=== PATIENT | female | born 1940 | race Caucasian/White ===

== ENCOUNTER 2021-09-20 19:47 | Inpatient (IN) ==
[2021-09-20] MEDS ORDERED: Melatonin 3 MG TABLET PO PRN (22:53)
[2021-09-20] MEDS ORDERED: Naloxone 0.4 MG/ML INJ IVP PRN (22:53)
[2021-09-20] MEDS ORDERED: *HR* HYDROcodone/Acet 5/325 mg TABLET PO PRN (22:53)
[2021-09-20] MEDS ORDERED: *HR* OxyCODONE Immed Rel 5 MG TABLET PO PRN (22:53)
[2021-09-20] MEDS ORDERED: Ondansetron ODT 4 MG TAB.RAPDIS SL PRN (22:53)
[2021-09-21 00:52] LABS: Basophils % 0.2 %; Eosinophils # 0.4 K/mcL (0.0-0.6); Eosinophils % 2.1 %; Hematocrit 46.2 % (35.3-44.9); Hemoglobin 14.9 g/dL (11.5-15.4); Immature Granulocytes % 0.6 % (0-4); Lymphocytes # 1.5 K/mcL (0.6-4.6); Lymphocytes % 7.8 %; Mean Corpuscular HGB Conc 32.3 g/dL (31.6-35.5); Mean Corpuscular Hemoglobin 32.5 pg (28.0-33.3); Mean Corpuscular Volume 100.9 fL (83.0-100.0); Neutrophils # 16.1 K/mcL (1.6-8.9); Platelet Count 223 K/mcL (140-400); Red Blood Count 4.58 M/mcL (3.82-4.97); Red Cell Distribution Width 12.9 % (11.5-14.5); Segmented Neutrophils % 84.3 %; White Blood Count 19.1 K/mcL (4.3-11.1)
[2021-09-21 00:59] LABS: INR 1.1; Prothrombin Time 12.4 Seconds (9.4-12.1)
[2021-09-21 01:02] LABS: Activated Partial Thrombo Time 25.7 Seconds (26.0-36.0)
[2021-09-21 01:04] LABS: Albumin 3.8 g/dL (3.5-5.7); Albumin/Globulin Ratio 1.3 (1.1-2.2); Bilirubin,Total 1.2 mg/dL (0.3-1.0); Calcium 9.1 mg/dL (8.6-10.3); Globulin 2.9 g/dL (2.4-3.5); Magnesium 2.3 mg/dL (1.6-2.6); Potassium 3.9 mEq/L (3.5-5.1); Total Protein 6.7 g/dL (6.4-8.9)
[2021-09-21] MEDS ORDERED: Acetaminophen 325 MG TABLET PO PRN (12:17)
[2021-09-21] MEDS ORDERED: *HR* HYDROcodone/Acet 5/325 mg TABLET PO PRN (12:17)
[2021-09-21] MEDS ORDERED: *HR* FentaNYL (PF) 100 MCG/2 ML VIAL ONE (12:27)
[2021-09-21] MEDS ORDERED: *HR* Midazolam HCl 5 MG/5 ML VIAL IVP ONE ×2 (12:27→13:37)
[2021-09-21] MEDS ORDERED: Pantoprazole 40 MG VIAL IVP SCH (12:30)
[2021-09-21] MEDS ORDERED: *HR* FentaNYL (PF) 100 MCG/2 ML VIAL IVP ONE (13:23)
[2021-09-21] MEDS ORDERED: Dextrose Gel 15 GM/37.5 ML TUBE PO PRN ×2 (17:37)
[2021-09-21] MEDS ORDERED: *HR* Dextrose 50 % in Water (Syg) 50 ML SYRINGE IVP PRN (17:37)
[2021-09-21] MEDS ORDERED: D5% in Water 1,000 ML IVC PRN (17:37)
[2021-09-21] MEDS ORDERED: 0.9 % Sodium Chloride 1,000 ML IVC SCH (18:00)
[2021-09-21 18:57] LABS: Bilirubin,Urine Negative (Negative); Blood,Urine Negative (Negative); Clarity,Urine Clear (Clear); Color,Urine Light-Yellow (Yellow); Glucose,Urine (UA) Normal (Normal); Ketones,Urine 20 mg/dL (Negative); Leukocyte Esterase,Urine Negative (Negative); Nitrite,Urine Negative (Negative); Protein,Urine Trace mg/dL (Neg-Trace); Specific Gravity,Urine 1.026 (1.010-1.025); Urobilinogen,Urine Normal (Normal)
[2021-09-21] MEDS: Piperacillin/Tazobactam 3.375 GM in 0.9 % Sodium Chloride Mini Bag 100 ML IVPB SCH (18:59)
[2021-09-22] MEDS ORDERED: 0.9 % Sodium Chloride Mini Bag 100 ML ONE (00:01)
[2021-09-22] MEDS: Piperacillin/Tazobactam 3.375 GM in 0.9 % Sodium Chloride Mini Bag 100 ML IVPB SCH ×4 (00:03→23:27)
[2021-09-22 03:00] LABS: Basophils % 0.2 %; Eosinophils # 0.1 K/mcL (0.0-0.6); Eosinophils % 0.7 %; Hemoglobin 13.7 g/dL (11.5-15.4); Immature Granulocytes % 0.3 % (0-4); Lymphocytes # 1.4 K/mcL (0.6-4.6); Lymphocytes % 10.6 %; Mean Corpuscular HGB Conc 31.1 g/dL (31.6-35.5); Mean Corpuscular Hemoglobin 31.8 pg (28.0-33.3); Mean Corpuscular Volume 102.1 fL (83.0-100.0); Mean Platelet Volume 10.2 fL (9.4-12.4); Monocytes # 0.8 K/mcL (0.0-1.3); Monocytes % 5.8 %; Neutrophils # 11.1 K/mcL (1.6-8.9); Platelet Count 165 K/mcL (140-400); Red Blood Count 4.31 M/mcL (3.82-4.97); Red Cell Distribution Width 12.6 % (11.5-14.5); Segmented Neutrophils % 82.4 %; White Blood Count 13.5 K/mcL (4.3-11.1)
[2021-09-22 03:06] LABS: INR 1.1; Prothrombin Time 12.1 Seconds (9.4-12.1)
[2021-09-22 03:21] LABS: Albumin 3.4 g/dL (3.5-5.7); Albumin/Globulin Ratio 1.4 (1.1-2.2); Bilirubin,Total 1.3 mg/dL (0.3-1.0); Calcium 8.5 mg/dL (8.6-10.3); Globulin 2.5 g/dL (2.4-3.5); Potassium 3.3 mEq/L (3.5-5.1); Total Protein 5.9 g/dL (6.4-8.9)
[2021-09-22] MEDS ORDERED: *HR* Rocuronium Bromide 50 MG/5 ML VIAL ONE ×2 (07:12→10:45)
[2021-09-22] MEDS ORDERED: Ondansetron 4 MG/2 ML VIAL ONE (07:12)
[2021-09-22] MEDS ORDERED: Lidocaine -MPF 2% 5 ML VIAL ONE (07:12)
[2021-09-22] MEDS ORDERED: *HR* Succinylcholine 200 MG/10 ML VIAL IVP ONE (07:12)
[2021-09-22] MEDS ORDERED: Lidocaine HCL 4 ML Topical Solution (Laryng-O-Jet Kit Sterile Pak) TP ONE (07:12)
[2021-09-22] MEDS ORDERED: *HR* Phenylephrine 10 MG/ML VIAL ONE (07:13)
[2021-09-22] MEDS ORDERED: *HR* Propofol 200 MG/20 ML VIAL IVP ONE (07:21)
[2021-09-22] MEDS ORDERED: *HR* FentaNYL (PF) 100 MCG/2 ML VIAL ONE (07:21)
[2021-09-22] MEDS ORDERED: *HR* Vasopressin 20 UNIT/ML VIAL ONE (07:28)
[2021-09-22] MEDS ORDERED: Acetaminophen IV 1,000 MG/100 ML BAG IVPB ONE ×2 (08:33→09:32)
[2021-09-22] MEDS ORDERED: *HR* OxyCODONE Immed Rel 5 MG TABLET PO PRN (08:33)
[2021-09-22] MEDS ORDERED: *HR* Labetalol 20 MG/4 ML SYRINGE IVP PRN (08:33)
[2021-09-22] MEDS ORDERED: Famotidine 20 MG/2 ML VIAL IVP ONE (08:33)
[2021-09-22] MEDS ORDERED: *HR* HYDROmorphone 2 MG TABLET PO PRN (08:33)
[2021-09-22] MEDS ORDERED: Ketamine HCL *QUVA* 50mg (1mL) SYRINGE ONE (08:43)
[2021-09-22] MEDS ORDERED: *HR* Magnesium Sulfate 1 GM/2 ML VIAL ONE (09:31)
[2021-09-22] MEDS ORDERED: Famotidine 20 MG/2 ML VIAL ONE (09:32)
[2021-09-22] MEDS ORDERED: Sugammadex Sodium 200 MG/2 ML VIAL IV ONE (11:35)
[2021-09-22] MEDS ORDERED: *HR* Labetalol 20 MG/4 ML SYRINGE IVP ONE (12:08)
[2021-09-22] MEDS: *HR* HYDROmorphone (PF) 1 MG/ML SYRINGE IVP PRN ×2 (12:28→12:39)
[2021-09-22] MEDS ORDERED: Naloxone 0.4 MG/ML INJ IVP PRN (13:27)
[2021-09-22] MEDS ORDERED: Dextrose Gel 15 GM/37.5 ML TUBE PO PRN ×2 (13:27)
[2021-09-22] MEDS ORDERED: D5% in Water 1,000 ML IVC PRN (13:27)
[2021-09-22] MEDS ORDERED: Ondansetron ODT 4 MG TAB.RAPDIS SL PRN (13:27)
[2021-09-22] MEDS ORDERED: Melatonin 3 MG TABLET PO PRN (13:27)
[2021-09-22] MEDS: 0.9 % Sodium Chloride 1,000 ML IVC SCH (16:13)
[2021-09-22] MEDS: Acetaminophen IV 1,000 MG/100 ML BAG IVPB SCH ×2 (18:17→23:26)
[2021-09-23] MEDS: Acetaminophen IV 1,000 MG/100 ML BAG IVPB SCH ×4 (05:02→23:33)
[2021-09-23] MEDS: 0.9 % Sodium Chloride 1,000 ML IVC SCH ×2 (05:02→23:32)
[2021-09-23 07:31] LABS: Basophils % 0.1 %; Hemoglobin 14.4 g/dL (11.5-15.4); Red Cell Distribution Width 12.4 % (11.5-14.5)
[2021-09-23 07:34] LABS: Hematocrit 45.2 % (35.3-44.9); Immature Granulocytes % 0.2 % (0-4); Immature Platelets 3.8 % (1.1-6.1); Lymphocytes # 0.4 K/mcL (0.6-4.6); Lymphocytes % 2.5 %; Mean Corpuscular HGB Conc 31.9 g/dL (31.6-35.5); Mean Corpuscular Hemoglobin 31.9 pg (28.0-33.3); Mean Corpuscular Volume 100.2 fL (83.0-100.0); Mean Platelet Volume 10.2 fL (9.4-12.4); Monocytes # 0.3 K/mcL (0.0-1.3); Monocytes % 2.1 %; Neutrophils # 13.3 K/mcL (1.6-8.9); Platelet Count 148 K/mcL (140-400); Red Blood Count 4.51 M/mcL (3.82-4.97); Segmented Neutrophils % 95.1 %
[2021-09-23 07:51] LABS: Albumin 3.4 g/dL (3.5-5.7); Albumin/Globulin Ratio 1.4 (1.1-2.2); Bilirubin,Total 1.3 mg/dL (0.3-1.0); Calcium 8.2 mg/dL (8.6-10.3); Globulin 2.4 g/dL (2.4-3.5); Total Protein 5.8 g/dL (6.4-8.9)
[2021-09-23] MEDS: Piperacillin/Tazobactam 3.375 GM in 0.9 % Sodium Chloride Mini Bag 100 ML IVPB SCH ×3 (09:50→23:33)
[2021-09-23] MEDS: Pantoprazole 40 MG VIAL IVP SCH (09:51)
[2021-09-24 03:46] LABS: Basophils % 0.2 %; Hematocrit 44.6 % (35.3-44.9); Hemoglobin 14.2 g/dL (11.5-15.4); Immature Granulocytes % 0.6 % (0-4); Lymphocytes # 0.5 K/mcL (0.6-4.6); Lymphocytes % 2.3 %; Mean Corpuscular HGB Conc 31.8 g/dL (31.6-35.5); Mean Corpuscular Hemoglobin 31.8 pg (28.0-33.3); Mean Corpuscular Volume 99.8 fL (83.0-100.0); Mean Platelet Volume 10.2 fL (9.4-12.4); Monocytes # 0.7 K/mcL (0.0-1.3); Monocytes % 3.6 %; Neutrophils # 19.1 K/mcL (1.6-8.9); Platelet Count 141 K/mcL (140-400); Red Blood Count 4.47 M/mcL (3.82-4.97); Red Cell Distribution Width 12.8 % (11.5-14.5); Segmented Neutrophils % 93.3 %; White Blood Count 20.5 K/mcL (4.3-11.1)
[2021-09-24 04:06] LABS: Alanine Aminotransferase 399 Units/L (7-52); Albumin/Globulin Ratio 1.2 (1.1-2.2); Alkaline Phosphatase 65 Units/L (34-104); Aspartate Amino Transferase 272 Units/L (13-39); BUN/Creatinine Ratio 15 (6-26); Blood Urea Nitrogen 16 mg/dL (8-23); Calcium 8.2 mg/dL (8.6-10.3); Carbon Dioxide 23 mEq/L (23-29); Chloride 104 mEq/L (98-107); Globulin 2.5 g/dL (2.4-3.5); Glucose 97 mg/dL (70-105); Osmolality,Calculated 283 (280-300); Potassium 3.6 mEq/L (3.5-5.1); Sodium 136 mEq/L (136-145); Total Protein 5.5 g/dL (6.4-8.9); eGFR For African Americans > 60 (> 60); eGFR For Non-African Americans 50 (> 60)
[2021-09-24] MEDS: Acetaminophen IV 1,000 MG/100 ML BAG IVPB SCH ×3 (05:51→20:45)
[2021-09-24] MEDS: Piperacillin/Tazobactam 3.375 GM in 0.9 % Sodium Chloride Mini Bag 100 ML IVPB SCH ×3 (07:28→23:26)
[2021-09-24] MEDS: Pantoprazole 40 MG VIAL IVP SCH (08:40)
[2021-09-24] MEDS ORDERED: *HR* FentaNYL (PF) 100 MCG/2 ML VIAL ONE (12:08)
[2021-09-24] MEDS ORDERED: *HR* Propofol 200 MG/20 ML VIAL IVP ONE (12:08)
[2021-09-24] MEDS ORDERED: Ondansetron 4 MG/2 ML VIAL ONE (12:09)
[2021-09-24] MEDS ORDERED: Lidocaine HCL 4 ML Topical Solution (Laryng-O-Jet Kit Sterile Pak) TP ONE (12:09)
[2021-09-24] MEDS ORDERED: Lidocaine -MPF 2% 5 ML VIAL ONE (12:09)
[2021-09-24] MEDS ORDERED: *HR* Rocuronium Bromide 50 MG/5 ML VIAL ONE (12:09)
[2021-09-24] MEDS ORDERED: *HR* Phenylephrine 10 MG/ML VIAL ONE (12:13)
[2021-09-24] MEDS ORDERED: Albumin Human 5% 12.5 GM/250 ML IV.SOLN ONE (12:19)
[2021-09-24] MEDS ORDERED: Acetaminophen IV 1,000 MG/100 ML BAG IVPB ONE (12:19)
[2021-09-24] MEDS ORDERED: Ketamine HCL *QUVA* 50mg (1mL) SYRINGE ONE (12:19)
[2021-09-24] MEDS ORDERED: *HR* Vasopressin 20 UNIT/ML VIAL ONE (12:19)
[2021-09-24] MEDS ORDERED: CefOXitin 1,000 MG VIAL ONE (12:23)
[2021-09-24] MEDS ORDERED: *HR* HYDROmorphone PF 0.5 MG/0.5 ML SYRINGE IVP PRN (12:58)
[2021-09-24] MEDS ORDERED: Sugammadex Sodium 200 MG/2 ML VIAL IV ONE (14:26)
[2021-09-24] MEDS ORDERED: *HR* HYDROMORPHONE 2 MG/ML VIAL ONE (14:40)
[2021-09-24] MEDS ORDERED: *HR* Metoprolol 5 MG/5 ML VIAL IVP PRN (14:49)
[2021-09-24] MEDS ORDERED: Ringers Solution, Lactated 1,000 ML ONE (15:19)
[2021-09-24] MEDS: 0.9 % Sodium Chloride 1,000 ML IVC SCH ×2 (16:09→16:12)
[2021-09-25 01:42] LABS: Basophils % 0.1 %; Hematocrit 40.4 % (35.3-44.9); Hemoglobin 13.2 g/dL (11.5-15.4); Immature Granulocytes % 1.1 % (0-4); Lymphocytes # 0.3 K/mcL (0.6-4.6); Mean Corpuscular HGB Conc 32.7 g/dL (31.6-35.5); Mean Corpuscular Hemoglobin 32.8 pg (28.0-33.3); Mean Corpuscular Volume 100.2 fL (83.0-100.0); Mean Platelet Volume 10.5 fL (9.4-12.4); Monocytes # 0.6 K/mcL (0.0-1.3); Monocytes % 3.5 %; Neutrophils # 16.3 K/mcL (1.6-8.9); Platelet Count 133 K/mcL (140-400); Red Blood Count 4.03 M/mcL (3.82-4.97); Segmented Neutrophils % 93.3 %; White Blood Count 17.4 K/mcL (4.3-11.1)
[2021-09-25 02:03] LABS: Calcium 8.1 mg/dL (8.6-10.3); Potassium 3.5 mEq/L (3.5-5.1)
[2021-09-25] MEDS: Acetaminophen IV 1,000 MG/100 ML BAG IVPB SCH ×4 (02:04→20:51)
[2021-09-25] MEDS: Pantoprazole 40 MG VIAL IVP SCH (08:11)
[2021-09-25] MEDS: Piperacillin/Tazobactam 3.375 GM in 0.9 % Sodium Chloride Mini Bag 100 ML IVPB SCH ×2 (08:12→15:45)
[2021-09-25] MEDS: 0.9 % Sodium Chloride 1,000 ML IVC SCH (12:21)
[2021-09-25] MEDS: *HR* Dextrose 50 % in Water (Syg) 50 ML SYRINGE IVP PRN (17:30)
[2021-09-26] MEDS: Piperacillin/Tazobactam 3.375 GM in 0.9 % Sodium Chloride Mini Bag 100 ML IVPB SCH ×3 (00:30→15:27)
[2021-09-26] MEDS: Acetaminophen IV 1,000 MG/100 ML BAG IVPB SCH ×4 (02:52→21:38)
[2021-09-26 06:18] LABS: Basophils % 0.1 %; Eosinophils % 0.3 %; Hematocrit 37.9 % (35.3-44.9); Hemoglobin 12.2 g/dL (11.5-15.4); Immature Granulocytes % 1.6 % (0-4); Lymphocytes # 0.6 K/mcL (0.6-4.6); Lymphocytes % 4.2 %; Mean Corpuscular HGB Conc 32.2 g/dL (31.6-35.5); Mean Corpuscular Hemoglobin 32.4 pg (28.0-33.3); Mean Corpuscular Volume 100.5 fL (83.0-100.0); Mean Platelet Volume 9.9 fL (9.4-12.4); Monocytes # 0.8 K/mcL (0.0-1.3); Monocytes % 5.3 %; Neutrophils # 12.6 K/mcL (1.6-8.9); Platelet Count 184 K/mcL (140-400); Red Blood Count 3.77 M/mcL (3.82-4.97); Red Cell Distribution Width 13.4 % (11.5-14.5); Segmented Neutrophils % 88.5 %; White Blood Count 14.2 K/mcL (4.3-11.1)
[2021-09-26 06:43] LABS: BUN/Creatinine Ratio 26 (6-26); Blood Urea Nitrogen 27 mg/dL (8-23); Calcium 8.2 mg/dL (8.6-10.3); Carbon Dioxide 21 mEq/L (23-29); Chloride 108 mEq/L (98-107); Glucose 68 mg/dL (70-105); Osmolality,Calculated 293 (280-300); Potassium 3.4 mEq/L (3.5-5.1); Sodium 140 mEq/L (136-145); eGFR For African Americans > 60 (> 60); eGFR For Non-African Americans 51 (> 60)
[2021-09-26] MEDS: *HR* Dextrose 50 % in Water (Syg) 50 ML SYRINGE IVP PRN (07:38)
[2021-09-26] MEDS: Pantoprazole 40 MG VIAL IVP SCH (08:15)
[2021-09-26] MEDS: 0.9 % Sodium Chloride 1,000 ML IVC SCH (08:19)
[2021-09-26] MEDS ORDERED: Morphine Sulfate 2 MG/ML SYRINGE IVP ONE (12:04)
[2021-09-26] MEDS: *HR* Metoprolol 5 MG/5 ML VIAL IVP PRN ×2 (15:27→22:17)
[2021-09-27] MEDS: Piperacillin/Tazobactam 3.375 GM in 0.9 % Sodium Chloride Mini Bag 100 ML IVPB SCH ×4 (00:54→23:39)
[2021-09-27] MEDS: *HR* Dextrose 50 % in Water (Syg) 50 ML SYRINGE IVP PRN ×3 (01:05→22:33)
[2021-09-27 02:26] LABS: Basophils % 0.2 %; Eosinophils # 0.1 K/mcL (0.0-0.6); Eosinophils % 0.8 %; Hematocrit 39.2 % (35.3-44.9); Hemoglobin 12.4 g/dL (11.5-15.4); Lymphocytes # 0.5 K/mcL (0.6-4.6); Mean Corpuscular HGB Conc 31.6 g/dL (31.6-35.5); Mean Corpuscular Hemoglobin 31.6 pg (28.0-33.3); Mean Platelet Volume 9.8 fL (9.4-12.4); Monocytes # 0.4 K/mcL (0.0-1.3); Monocytes % 3.9 %; Neutrophils # 9.5 K/mcL (1.6-8.9); Platelet Count 188 K/mcL (140-400); Red Blood Count 3.92 M/mcL (3.82-4.97); Red Cell Distribution Width 13.5 % (11.5-14.5); Segmented Neutrophils % 89.1 %; White Blood Count 10.7 K/mcL (4.3-11.1)
[2021-09-27 02:41] LABS: Magnesium 1.8 mg/dL (1.6-2.6); Phosphorous 1.8 mg/dL (2.7-4.5)
[2021-09-27 02:43] LABS: BUN/Creatinine Ratio 25 (6-26); Blood Urea Nitrogen 23 mg/dL (8-23); Calcium 8.2 mg/dL (8.6-10.3); Carbon Dioxide 19 mEq/L (23-29); Chloride 109 mEq/L (98-107); Glucose 120 mg/dL (70-105); Osmolality,Calculated 297 (280-300); Potassium 3.5 mEq/L (3.5-5.1); Sodium 141 mEq/L (136-145); eGFR For African Americans > 60 (> 60); eGFR For Non-African Americans 59 (> 60)
[2021-09-27] MEDS: Acetaminophen IV 1,000 MG/100 ML BAG IVPB SCH ×4 (03:44→22:35)
[2021-09-27] MEDS: 0.9 % Sodium Chloride 1,000 ML IVC SCH (09:11)
[2021-09-27] MEDS: Pantoprazole 40 MG VIAL IVP SCH (09:12)
[2021-09-27] MEDS: Ondansetron 4 MG/2 ML VIAL IVP PRN (13:29)
[2021-09-27] MEDS ORDERED: *HR* LORazepam 2 MG/ML VIAL IVP ONE (23:59)
[2021-09-28] MEDS: 0.9 % Sodium Chloride 1,000 ML IVC SCH ×2 (02:45→21:25)
[2021-09-28] MEDS: Acetaminophen IV 1,000 MG/100 ML BAG IVPB SCH ×4 (02:50→21:11)
[2021-09-28 05:25] LABS: Hematocrit 37.9 % (35.3-44.9); Hemoglobin 12.3 g/dL (11.5-15.4); Mean Corpuscular HGB Conc 32.5 g/dL (31.6-35.5); Mean Corpuscular Hemoglobin 32.3 pg (28.0-33.3); Mean Corpuscular Volume 99.5 fL (83.0-100.0); Mean Platelet Volume 9.5 fL (9.4-12.4); Platelet Count 194 K/mcL (140-400); Red Blood Count 3.81 M/mcL (3.82-4.97); Red Cell Distribution Width 13.5 % (11.5-14.5); White Blood Count 8.2 K/mcL (4.3-11.1)
[2021-09-28 05:44] LABS: BUN/Creatinine Ratio 18 (6-26); Blood Urea Nitrogen 13 mg/dL (8-23); Calcium 7.9 mg/dL (8.6-10.3); Carbon Dioxide 24 mEq/L (23-29); Chloride 107 mEq/L (98-107); Glucose 80 mg/dL (70-105); Magnesium 1.6 mg/dL (1.6-2.6); Osmolality,Calculated 289 (280-300); Potassium 3.1 mEq/L (3.5-5.1); Sodium 140 mEq/L (136-145); eGFR For African Americans > 60 (> 60); eGFR For Non-African Americans > 60 (> 60)
[2021-09-28] MEDS: Piperacillin/Tazobactam 3.375 GM in 0.9 % Sodium Chloride Mini Bag 100 ML IVPB SCH ×2 (08:55→15:49)
[2021-09-28] MEDS: Pantoprazole 40 MG VIAL IVP SCH (08:55)
[2021-09-29] MEDS: Piperacillin/Tazobactam 3.375 GM in 0.9 % Sodium Chloride Mini Bag 100 ML IVPB SCH ×3 (00:23→17:34)
[2021-09-29 05:35] LABS: Hemoglobin 13.5 g/dL (11.5-15.4); Mean Corpuscular HGB Conc 32.1 g/dL (31.6-35.5); Mean Corpuscular Hemoglobin 32.4 pg (28.0-33.3); Mean Corpuscular Volume 100.7 fL (83.0-100.0); Mean Platelet Volume 9.6 fL (9.4-12.4); Platelet Count 204 K/mcL (140-400); Red Blood Count 4.17 M/mcL (3.82-4.97); Red Cell Distribution Width 13.5 % (11.5-14.5); White Blood Count 7.3 K/mcL (4.3-11.1)
[2021-09-29 06:10] LABS: BUN/Creatinine Ratio 15 (6-26); Blood Urea Nitrogen 12 mg/dL (8-23); Calcium 7.7 mg/dL (8.6-10.3); Carbon Dioxide 24 mEq/L (23-29); Chloride 106 mEq/L (98-107); Glucose 81 mg/dL (70-105); Magnesium 1.5 mg/dL (1.6-2.6); Osmolality,Calculated 283 (280-300); Potassium 4.2 mEq/L (3.5-5.1); Sodium 137 mEq/L (136-145); eGFR For African Americans > 60 (> 60); eGFR For Non-African Americans > 60 (> 60)
[2021-09-29] MEDS: Acetaminophen IV 1,000 MG/100 ML BAG IVPB SCH ×2 (07:50→07:51)
[2021-09-29] MEDS: Pantoprazole 40 MG VIAL IVP SCH (08:05)
[2021-09-29] MEDS: amLODIPine 5 MG TABLET PO SCH (12:35)
[2021-09-29 15:55] LABS: C.difficile Toxin A/B Gene PCR Not detected (Not detect); Campylobacter by PCR Not detected (Not detect); Plesiomonas shigelloides PCR Not detected (Not detect); Salmonella PCR Not detected (Not detect)
[2021-09-29 15:56] LABS: Adenovirus F 40/41 PCR Not detected (Not detect); Astrovirus PCR Not detected (Not detect); Cryptosporidium by PCR Not detected (Not detect); Cyclospora cayetanensis PCR Not detected (Not detect); E. coli O157 by PCR Not detected (Not detect); Entamoeba histolytica PCR Not detected (Not detect); Enteroaggregative E.coli(EAEC) Not detected (Not detect); Enteropathogenic E.coli(EPEC) Not detected (Not detect); Enterotoxigenic E.coli (ETEC) Not detected (Not detect); Giardia lamblia PCR Not detected (Not detect); Norovirus GI/GII PCR Not detected (Not detect); Rotavirus A PCR Not detected (Not detect); Sapovirus PCR Not detected (Not detect); Shig/EnteroinvasiveE coli EIEC Not detected (Not detect); Shigalike tox-prod E coli STEC Not detected (Not detect); Vibrio PCR Not detected (Not detect); Vibrio cholerae PCR Not detected (Not detect); Yersinia enterocolitica PCR Not detected (Not detect)
[2021-09-30] MEDS: Piperacillin/Tazobactam 3.375 GM in 0.9 % Sodium Chloride Mini Bag 100 ML IVPB SCH ×4 (00:12→23:42)
[2021-09-30] MEDS ORDERED: Acetaminophen 325 MG TABLET PO ONE (01:18)
[2021-09-30] MEDS: amLODIPine 5 MG TABLET PO SCH (07:40)
[2021-09-30] MEDS: Ondansetron 4 MG/2 ML VIAL IVP PRN (10:34)
[2021-09-30 11:05] LABS: Hematocrit 42.5 % (35.3-44.9); Hemoglobin 13.4 g/dL (11.5-15.4); Mean Corpuscular HGB Conc 31.5 g/dL (31.6-35.5); Mean Corpuscular Hemoglobin 31.5 pg (28.0-33.3); Mean Corpuscular Volume 99.8 fL (83.0-100.0); Mean Platelet Volume 9.8 fL (9.4-12.4); Platelet Count 227 K/mcL (140-400); Red Blood Count 4.26 M/mcL (3.82-4.97); Red Cell Distribution Width 13.5 % (11.5-14.5)
[2021-09-30 11:06] LABS: White Blood Count 15.3 K/mcL (4.3-11.1)
[2021-09-30 11:55] LABS: BUN/Creatinine Ratio 13 (6-26); Blood Urea Nitrogen 11 mg/dL (8-23); Calcium 7.9 mg/dL (8.6-10.3); Carbon Dioxide 23 mEq/L (23-29); Chloride 102 mEq/L (98-107); Glucose 144 mg/dL (70-105); Magnesium 1.4 mg/dL (1.6-2.6); Osmolality,Calculated 282 (280-300); Sodium 135 mEq/L (136-145); eGFR For African Americans > 60 (> 60); eGFR For Non-African Americans > 60 (> 60)
[2021-09-30] MEDS: 0.9 % Sodium Chloride 1,000 ML IVC SCH (21:24)
[2021-10-01] MEDS: amLODIPine 5 MG TABLET PO SCH (08:59)
[2021-10-01] MEDS: Piperacillin/Tazobactam 3.375 GM in 0.9 % Sodium Chloride Mini Bag 100 ML IVPB SCH ×3 (09:00→23:16)
[2021-10-01 11:04] LABS: BUN/Creatinine Ratio 12 (6-26); Blood Urea Nitrogen 9 mg/dL (8-23); Calcium 7.5 mg/dL (8.6-10.3); Carbon Dioxide 23 mEq/L (23-29); Chloride 105 mEq/L (98-107); Glucose 82 mg/dL (70-105); Magnesium 1.8 mg/dL (1.6-2.6); Osmolality,Calculated 278 (280-300); Potassium 3.5 mEq/L (3.5-5.1); Sodium 135 mEq/L (136-145); eGFR For African Americans > 60 (> 60); eGFR For Non-African Americans > 60 (> 60)
[2021-10-01] MEDS: Magic Mouthwash 10 ML UD Cup PO SCH ×2 (12:19→16:50)
[2021-10-01] MEDS: 0.9 % Sodium Chloride 1,000 ML IVC SCH (20:57)
[2021-10-02 04:41] LABS: Hematocrit 39.2 % (35.3-44.9); Hemoglobin 12.4 g/dL (11.5-15.4); Mean Corpuscular HGB Conc 31.6 g/dL (31.6-35.5); Mean Corpuscular Hemoglobin 31.8 pg (28.0-33.3); Mean Corpuscular Volume 100.5 fL (83.0-100.0); Mean Platelet Volume 9.5 fL (9.4-12.4); Platelet Count 191 K/mcL (140-400); Red Cell Distribution Width 13.6 % (11.5-14.5); White Blood Count 13.3 K/mcL (4.3-11.1)
[2021-10-02 05:01] LABS: BUN/Creatinine Ratio 12 (6-26); Blood Urea Nitrogen 9 mg/dL (8-23); Calcium 7.5 mg/dL (8.6-10.3); Carbon Dioxide 20 mEq/L (23-29); Chloride 107 mEq/L (98-107); Glucose 96 mg/dL (70-105); Magnesium 1.7 mg/dL (1.6-2.6); Osmolality,Calculated 277 (280-300); Potassium 3.5 mEq/L (3.5-5.1); Sodium 134 mEq/L (136-145); eGFR For African Americans > 60 (> 60); eGFR For Non-African Americans > 60 (> 60)
[2021-10-02] MEDS: Magic Mouthwash 10 ML UD Cup PO SCH ×3 (07:29→17:36)
[2021-10-02] MEDS: Piperacillin/Tazobactam 3.375 GM in 0.9 % Sodium Chloride Mini Bag 100 ML IVPB SCH ×2 (08:02→17:36)
[2021-10-02] MEDS: amLODIPine 5 MG TABLET PO SCH (08:02)
[2021-10-02 17:17] LABS: Influenza A PCR Negative (Negative); Influenza B PCR Negative (Negative); Resp. Syncytial Virus PCR Negative (Negative)
[2021-10-02 17:23] LABS: SARS-CoV-2 by PCR (In House) Positive (Negative)
[2021-10-02] MEDS ORDERED: *HR* LORazepam 2 MG/ML VIAL IVP ONE (19:51)
[2021-10-03] MEDS: Piperacillin/Tazobactam 3.375 GM in 0.9 % Sodium Chloride Mini Bag 100 ML IVPB SCH ×3 (00:52→17:46)
[2021-10-03] MEDS: 0.9 % Sodium Chloride 1,000 ML IVC SCH (00:54)
[2021-10-03 06:14] LABS: BUN/Creatinine Ratio 11 (6-26); Blood Urea Nitrogen 9 mg/dL (8-23); Calcium 7.6 mg/dL (8.6-10.3); Carbon Dioxide 24 mEq/L (23-29); Chloride 107 mEq/L (98-107); Glucose 77 mg/dL (70-105); Osmolality,Calculated 285 (280-300); Potassium 3.2 mEq/L (3.5-5.1); Sodium 139 mEq/L (136-145); eGFR For African Americans > 60 (> 60); eGFR For Non-African Americans > 60 (> 60)
[2021-10-03 06:16] LABS: Hematocrit 35.4 % (35.3-44.9); Hemoglobin 11.3 g/dL (11.5-15.4); Mean Corpuscular HGB Conc 31.9 g/dL (31.6-35.5); Mean Corpuscular Hemoglobin 31.4 pg (28.0-33.3); Mean Corpuscular Volume 98.3 fL (83.0-100.0); Mean Platelet Volume 9.4 fL (9.4-12.4); Platelet Count 238 K/mcL (140-400); Red Cell Distribution Width 13.3 % (11.5-14.5); White Blood Count 9.8 K/mcL (4.3-11.1)
[2021-10-03] MEDS: amLODIPine 5 MG TABLET PO SCH (10:36)
[2021-10-03] MEDS: Magic Mouthwash 10 ML UD Cup PO SCH ×3 (10:37→17:46)
[2021-10-03] MEDS: Ondansetron 4 MG/2 ML VIAL IVP PRN (14:30)
[2021-10-03] MEDS: Acetaminophen 325 MG TABLET PO PRN (18:36)
[2021-10-04] MEDS: Piperacillin/Tazobactam 3.375 GM in 0.9 % Sodium Chloride Mini Bag 100 ML IVPB SCH ×2 (00:56→08:32)
[2021-10-04] MEDS: Acetaminophen 325 MG TABLET PO PRN ×3 (01:34→15:35)
[2021-10-04 04:46] LABS: Hematocrit 33.1 % (35.3-44.9); Hemoglobin 10.8 g/dL (11.5-15.4); Mean Corpuscular HGB Conc 32.6 g/dL (31.6-35.5); Mean Corpuscular Volume 98.2 fL (83.0-100.0); Mean Platelet Volume 9.7 fL (9.4-12.4); Platelet Count 248 K/mcL (140-400); Red Blood Count 3.37 M/mcL (3.82-4.97); Red Cell Distribution Width 13.4 % (11.5-14.5); White Blood Count 7.7 K/mcL (4.3-11.1)
[2021-10-04 05:04] LABS: BUN/Creatinine Ratio 10 (6-26); Blood Urea Nitrogen 8 mg/dL (8-23); Calcium 7.3 mg/dL (8.6-10.3); Carbon Dioxide 23 mEq/L (23-29); Chloride 106 mEq/L (98-107); Glucose 87 mg/dL (70-105); Magnesium 1.6 mg/dL (1.6-2.6); Osmolality,Calculated 282 (280-300); Sodium 137 mEq/L (136-145); eGFR For African Americans > 60 (> 60); eGFR For Non-African Americans > 60 (> 60)
[2021-10-04] MEDS ORDERED: Potassium Chloride Elixir 20 MEQ/15 ML UDC PO ONE (08:25)
[2021-10-04] MEDS: Ondansetron 4 MG/2 ML VIAL IVP PRN ×2 (08:32→15:35)
[2021-10-04] MEDS: Magic Mouthwash 10 ML UD Cup PO SCH ×3 (08:34→15:24)
[2021-10-04] MEDS: amLODIPine 5 MG TABLET PO SCH (08:38)
[2021-10-05] MEDS: amLODIPine 5 MG TABLET PO SCH (07:53)
[2021-10-05] MEDS: Ondansetron 4 MG/2 ML VIAL IVP PRN (07:53)
[2021-10-05] MEDS: Magic Mouthwash 10 ML UD Cup PO SCH ×3 (07:55→18:32)
[2021-10-05] MEDS: Acetaminophen 325 MG TABLET PO PRN (07:55)
[2021-10-06 03:15] LABS: Hematocrit 36.7 % (35.3-44.9); Hemoglobin 11.5 g/dL (11.5-15.4); Mean Corpuscular HGB Conc 31.3 g/dL (31.6-35.5); Mean Corpuscular Hemoglobin 31.4 pg (28.0-33.3); Mean Corpuscular Volume 100.3 fL (83.0-100.0); Mean Platelet Volume 9.5 fL (9.4-12.4); Platelet Count 311 K/mcL (140-400); Red Blood Count 3.66 M/mcL (3.82-4.97); Red Cell Distribution Width 13.2 % (11.5-14.5); White Blood Count 5.6 K/mcL (4.3-11.1)
[2021-10-06 03:34] LABS: BUN/Creatinine Ratio 9 (6-26); Blood Urea Nitrogen 8 mg/dL (8-23); Calcium 7.6 mg/dL (8.6-10.3); Carbon Dioxide 26 mEq/L (23-29); Chloride 104 mEq/L (98-107); Glucose 88 mg/dL (70-105); Osmolality,Calculated 286 (280-300); Potassium 2.7 mEq/L (3.5-5.1); Sodium 139 mEq/L (136-145); eGFR For African Americans > 60 (> 60); eGFR For Non-African Americans > 60 (> 60)
[2021-10-06] MEDS: Magic Mouthwash 10 ML UD Cup PO SCH ×3 (08:48→15:38)
[2021-10-06] MEDS: amLODIPine 5 MG TABLET PO SCH (08:48)
[2021-10-07 06:12] LABS: Hematocrit 37.7 % (35.3-44.9); Hemoglobin 11.8 g/dL (11.5-15.4); Mean Corpuscular HGB Conc 31.3 g/dL (31.6-35.5); Mean Corpuscular Hemoglobin 30.7 pg (28.0-33.3); Mean Corpuscular Volume 98.2 fL (83.0-100.0); Mean Platelet Volume 9.5 fL (9.4-12.4); Platelet Count 327 K/mcL (140-400); Red Blood Count 3.84 M/mcL (3.82-4.97); Red Cell Distribution Width 13.2 % (11.5-14.5); White Blood Count 5.3 K/mcL (4.3-11.1)
[2021-10-07 06:35] LABS: BUN/Creatinine Ratio 14 (6-26); Blood Urea Nitrogen 10 mg/dL (8-23); Calcium 7.9 mg/dL (8.6-10.3); Carbon Dioxide 25 mEq/L (23-29); Chloride 103 mEq/L (98-107); Glucose 84 mg/dL (70-105); Osmolality,Calculated 280 (280-300); Potassium 3.5 mEq/L (3.5-5.1); Sodium 136 mEq/L (136-145); eGFR For African Americans > 60 (> 60); eGFR For Non-African Americans > 60 (> 60)
[2021-10-07] MEDS: Magic Mouthwash 10 ML UD Cup PO SCH ×3 (08:01→17:38)
[2021-10-07] MEDS: amLODIPine 5 MG TABLET PO SCH (08:01)
[2021-10-08 05:16] LABS: Hematocrit 39.5 % (35.3-44.9); Hemoglobin 12.7 g/dL (11.5-15.4); Mean Corpuscular HGB Conc 32.2 g/dL (31.6-35.5); Mean Corpuscular Hemoglobin 31.3 pg (28.0-33.3); Mean Corpuscular Volume 97.3 fL (83.0-100.0); Mean Platelet Volume 9.4 fL (9.4-12.4); Platelet Count 337 K/mcL (140-400); Red Blood Count 4.06 M/mcL (3.82-4.97); Red Cell Distribution Width 12.9 % (11.5-14.5)
[2021-10-08 05:18] LABS: White Blood Count 8.5 K/mcL (4.3-11.1)
[2021-10-08 05:55] LABS: BUN/Creatinine Ratio 33 (6-26); Blood Urea Nitrogen 22 mg/dL (8-23); Calcium 8.2 mg/dL (8.6-10.3); Carbon Dioxide 22 mEq/L (23-29); Chloride 105 mEq/L (98-107); Glucose 87 mg/dL (70-105); Osmolality,Calculated 287 (280-300); Potassium 3.7 mEq/L (3.5-5.1); Sodium 137 mEq/L (136-145); eGFR For African Americans > 60 (> 60); eGFR For Non-African Americans > 60 (> 60)
[2021-10-08] MEDS: Magic Mouthwash 10 ML UD Cup PO SCH ×3 (07:44→15:18)
[2021-10-08] MEDS: amLODIPine 5 MG TABLET PO SCH (07:44)
[2021-10-08] MEDS ORDERED: Acetaminophen 325 MG TABLET PO PRN (08:14)
[2021-10-08] MEDS ORDERED: GuaiFENesin/Codeine Oral Soln 5 ML UDC PO PRN (08:14)
[2021-10-09 03:29] LABS: Hematocrit 39.3 % (35.3-44.9); Hemoglobin 12.8 g/dL (11.5-15.4); Mean Corpuscular HGB Conc 32.6 g/dL (31.6-35.5); Mean Corpuscular Hemoglobin 31.9 pg (28.0-33.3); Mean Platelet Volume 9.9 fL (9.4-12.4); Platelet Count 358 K/mcL (140-400); Red Blood Count 4.01 M/mcL (3.82-4.97); Red Cell Distribution Width 13.1 % (11.5-14.5); White Blood Count 8.5 K/mcL (4.3-11.1)
[2021-10-09 03:56] LABS: BUN/Creatinine Ratio 31 (6-26); Blood Urea Nitrogen 26 mg/dL (8-23); Calcium 8.5 mg/dL (8.6-10.3); Carbon Dioxide 26 mEq/L (23-29); Chloride 104 mEq/L (98-107); Glucose 94 mg/dL (70-105); Osmolality,Calculated 291 (280-300); Potassium 4.1 mEq/L (3.5-5.1); Sodium 138 mEq/L (136-145); eGFR For African Americans > 60 (> 60); eGFR For Non-African Americans > 60 (> 60)
[2021-10-09] MEDS: Magic Mouthwash 10 ML UD Cup PO SCH ×3 (10:07→16:31)
[2021-10-09] MEDS: amLODIPine 5 MG TABLET PO SCH (10:07)
[2021-10-10 05:24] LABS: Hematocrit 35.3 % (35.3-44.9); Hemoglobin 11.5 g/dL (11.5-15.4); Mean Corpuscular HGB Conc 32.6 g/dL (31.6-35.5); Mean Corpuscular Hemoglobin 31.4 pg (28.0-33.3); Mean Corpuscular Volume 96.4 fL (83.0-100.0); Mean Platelet Volume 9.8 fL (9.4-12.4); Platelet Count 325 K/mcL (140-400); Red Blood Count 3.66 M/mcL (3.82-4.97); Red Cell Distribution Width 12.7 % (11.5-14.5); White Blood Count 7.4 K/mcL (4.3-11.1)
[2021-10-10 05:49] LABS: BUN/Creatinine Ratio 27 (6-26); Blood Urea Nitrogen 19 mg/dL (8-23); Calcium 8.1 mg/dL (8.6-10.3); Carbon Dioxide 24 mEq/L (23-29); Chloride 104 mEq/L (98-107); Glucose 91 mg/dL (70-105); Osmolality,Calculated 286 (280-300); Potassium 3.5 mEq/L (3.5-5.1); Sodium 137 mEq/L (136-145); eGFR For African Americans > 60 (> 60); eGFR For Non-African Americans > 60 (> 60)
[2021-10-10] MEDS: Magic Mouthwash 10 ML UD Cup PO SCH ×3 (08:13→18:00)
[2021-10-10] MEDS: amLODIPine 5 MG TABLET PO SCH (08:13)
[2021-10-11] MEDS: Magic Mouthwash 10 ML UD Cup PO SCH ×3 (08:39→15:33)
[2021-10-11] MEDS: amLODIPine 5 MG TABLET PO SCH (08:39)
[2021-10-12 06:33] LABS: Basophils # 0.1 K/mcL (0.0-0.2); Basophils % 0.7 %; Eosinophils # 0.1 K/mcL (0.0-0.6); Eosinophils % 0.7 %; Hematocrit 36.9 % (35.3-44.9); Hemoglobin 11.6 g/dL (11.5-15.4); Immature Granulocytes % 2.3 % (0-4); Lymphocytes # 1.7 K/mcL (0.6-4.6); Lymphocytes % 16.8 %; Mean Corpuscular HGB Conc 31.4 g/dL (31.6-35.5); Mean Corpuscular Hemoglobin 30.8 pg (28.0-33.3); Mean Corpuscular Volume 97.9 fL (83.0-100.0); Mean Platelet Volume 9.7 fL (9.4-12.4); Monocytes # 0.9 K/mcL (0.0-1.3); Monocytes % 8.9 %; Neutrophils # 6.9 K/mcL (1.6-8.9); Platelet Count 326 K/mcL (140-400); Red Blood Count 3.77 M/mcL (3.82-4.97); Red Cell Distribution Width 12.7 % (11.5-14.5); Segmented Neutrophils % 70.6 %; White Blood Count 9.8 K/mcL (4.3-11.1)
[2021-10-12 06:47] LABS: BUN/Creatinine Ratio 22 (6-26); Blood Urea Nitrogen 16 mg/dL (8-23); Calcium 8.1 mg/dL (8.6-10.3); Carbon Dioxide 28 mEq/L (23-29); Chloride 103 mEq/L (98-107); Glucose 95 mg/dL (70-105); Magnesium 1.8 mg/dL (1.6-2.6); Osmolality,Calculated 287 (280-300); Phosphorous 2.4 mg/dL (2.7-4.5); Potassium 4.1 mEq/L (3.5-5.1); Sodium 138 mEq/L (136-145); eGFR For African Americans > 60 (> 60); eGFR For Non-African Americans > 60 (> 60)
[2021-10-12] MEDS: amLODIPine 5 MG TABLET PO SCH (09:06)
[2021-10-12] MEDS: Magic Mouthwash 10 ML UD Cup PO SCH ×3 (09:06→17:03)
[2021-10-13 03:32] LABS: Basophils # 0.1 K/mcL (0.0-0.2); Basophils % 0.6 %; Eosinophils # 0.1 K/mcL (0.0-0.6); Eosinophils % 0.5 %; Hematocrit 35.4 % (35.3-44.9); Hemoglobin 11.4 g/dL (11.5-15.4); Immature Granulocytes % 2.6 % (0-4); Lymphocytes # 1.5 K/mcL (0.6-4.6); Mean Corpuscular HGB Conc 32.2 g/dL (31.6-35.5); Mean Corpuscular Hemoglobin 31.4 pg (28.0-33.3); Mean Corpuscular Volume 97.5 fL (83.0-100.0); Mean Platelet Volume 9.7 fL (9.4-12.4); Monocytes # 0.8 K/mcL (0.0-1.3); Monocytes % 8.4 %; Neutrophils # 7.2 K/mcL (1.6-8.9); Platelet Count 312 K/mcL (140-400); Red Blood Count 3.63 M/mcL (3.82-4.97); Red Cell Distribution Width 12.6 % (11.5-14.5); Segmented Neutrophils % 72.9 %; White Blood Count 9.9 K/mcL (4.3-11.1)
[2021-10-13 03:53] LABS: BUN/Creatinine Ratio 19 (6-26); Blood Urea Nitrogen 15 mg/dL (8-23); Calcium 8.2 mg/dL (8.6-10.3); Carbon Dioxide 27 mEq/L (23-29); Chloride 106 mEq/L (98-107); Glucose 93 mg/dL (70-105); Magnesium 1.7 mg/dL (1.6-2.6); Osmolality,Calculated 295 (280-300); Potassium 4.6 mEq/L (3.5-5.1); Sodium 142 mEq/L (136-145); eGFR For African Americans > 60 (> 60); eGFR For Non-African Americans > 60 (> 60)
[2021-10-13 06:44] VITALS: O2SAT 95
[2021-10-13] MEDS: Magic Mouthwash 10 ML UD Cup PO SCH ×2 (07:25→13:01)
[2021-10-13] MEDS: amLODIPine 5 MG TABLET PO SCH (07:25)
[2021-10-13 11:45] VITALS: BP 109/71; PULSE 100; TEMP 97.7
== END 2021-10-13 15:55 | DRG 853 ==
LOC: 3ANU → SUATTDRO 22:26
PROVIDERS: ADMIT Internal Medicine; ATTEND Pharmacist
PROC: ENDOEBX (2021-09-21 11:00)

== ENCOUNTER 2021-10-24 21:00 | Inpatient (IN) ==
[2021-10-25] MEDS ORDERED: Naloxone 0.4 MG/ML INJ IVP PRN (00:54)
[2021-10-25] MEDS ORDERED: Acetaminophen 325 MG TABLET PO PRN (00:54)
[2021-10-25] MEDS ORDERED: Ipratropium/Albuterol Neb 3 ML IH PRN (00:58)
[2021-10-25] MEDS ORDERED: *HR* Heparin 5,000 UNIT/ML VIAL IVP PRN ×2 (00:58)
[2021-10-25] MEDS ORDERED: Perflutren Lipid Microsphere 1.3 ML in 0.9 % Sodium Chloride 8.7 ML IVP PRN (01:32)
[2021-10-25] MEDS: Heparin 25,000UNIT/250ML 1/2NS 25,000 UNIT/250 ML IV.SOLN IVC SCH (01:32)
[2021-10-25 02:18] LABS: Basophils # 0.1 K/mcL (0.0-0.2); Basophils % 0.4 %; Eosinophils % 0.1 %; Hematocrit 33.8 % (35.3-44.9); Hemoglobin 10.3 g/dL (11.5-15.4); Immature Granulocytes % 2.2 % (0-4); Lymphocytes % 13.3 %; Mean Corpuscular HGB Conc 30.5 g/dL (31.6-35.5); Mean Corpuscular Hemoglobin 30.6 pg (28.0-33.3); Mean Corpuscular Volume 100.3 fL (83.0-100.0); Mean Platelet Volume 10.1 fL (9.4-12.4); Monocytes # 0.8 K/mcL (0.0-1.3); Monocytes % 5.4 %; Neutrophils # 12.1 K/mcL (1.6-8.9); Platelet Count 213 K/mcL (140-400); Red Blood Count 3.37 M/mcL (3.82-4.97); Red Cell Distribution Width 13.4 % (11.5-14.5); Segmented Neutrophils % 78.6 %; White Blood Count 15.3 K/mcL (4.3-11.1)
[2021-10-25 02:21] LABS: Heparin anti-factor XA UFH 0.16 IU/mL (0.30-0.70); INR 1.2; Prothrombin Time 13.3 Seconds (9.4-12.1)
[2021-10-25 02:39] LABS: Troponin I 0.31 ng/mL (< 0.04)
[2021-10-25 02:45] LABS: Magnesium 1.7 mg/dL (1.6-2.6); Phosphorous 3.3 mg/dL (2.7-4.5)
[2021-10-25 03:02] LABS: Alanine Aminotransferase 15 Units/L (7-52); Albumin 2.6 g/dL (3.5-5.7); Albumin/Globulin Ratio 0.9 (1.1-2.2); Alkaline Phosphatase 128 Units/L (34-104); Aspartate Amino Transferase 27 Units/L (13-39); BUN/Creatinine Ratio 25 (6-26); Bilirubin,Direct 0.1 mg/dL (0.0-0.2); Bilirubin,Indirect 0.4 mg/dL (0.0-1.0); Bilirubin,Total 0.5 mg/dL (0.3-1.0); Blood Urea Nitrogen 24 mg/dL (8-23); Calcium 7.9 mg/dL (8.6-10.3); Carbon Dioxide 15 mEq/L (23-29); Chloride 113 mEq/L (98-107); Glucose 76 mg/dL (70-105); Osmolality,Calculated 297 (280-300); Potassium 4.3 mEq/L (3.5-5.1); Sodium 142 mEq/L (136-145); Total Protein 5.6 g/dL (6.4-8.9); eGFR For African Americans > 60 (> 60); eGFR For Non-African Americans 56 (> 60)
[2021-10-25 04:58] LABS: Bacteria,Urine Few per hpf (None-Few); Bilirubin,Urine Negative (Negative); Blood,Urine Negative (Negative); Clarity,Urine Clear (Clear); Color,Urine Yellow (Yellow); Glucose,Urine (UA) Normal (Normal); Ketones,Urine 10 mg/dL (Negative); Leukocyte Esterase,Urine Moderate (Negative); Mucus,Urine Few per lpf (None-Few); Nitrite,Urine Negative (Negative); Protein,Urine 50 mg/dL (Neg-Trace); RBC,Urine 0-3 per hpf (0-3); Specific Gravity,Urine 1.022 (1.010-1.025); Squamous Epithelial Cell,Urine Few per hpf (None-Few); Urobilinogen,Urine Normal (Normal); WBC,Urine 50-100 per hpf (0-3)
[2021-10-25] MEDS: Piperacillin/Tazobactam 3.375 GM in 0.9 % Sodium Chloride Mini Bag 100 ML IVPB SCH ×2 (07:59→15:13)
[2021-10-25] MEDS: Chlorhexidine Rinse 15 ML MOUTHWASH MM SCH ×2 (09:09→19:42)
[2021-10-25] MEDS: Pantoprazole 40 MG VIAL IVP SCH (12:53)
[2021-10-25] MEDS: Ipratropium 1 PUFF INHALER IH SCH ×2 (15:44→20:44)
[2021-10-25] MEDS: Lactobacillus 1 EACH CAP.SPRINK GTUBE SCH (19:42)
[2021-10-26] MEDS: Piperacillin/Tazobactam 3.375 GM in 0.9 % Sodium Chloride Mini Bag 100 ML IVPB SCH ×4 (00:32→18:08)
[2021-10-26 01:26] LABS: Basophils % 0.2 %; Hematocrit 30.5 % (35.3-44.9); Hemoglobin 9.7 g/dL (11.5-15.4); Immature Granulocytes % 1.9 % (0-4); Lymphocytes # 1.1 K/mcL (0.6-4.6); Lymphocytes % 8.5 %; Mean Corpuscular HGB Conc 31.8 g/dL (31.6-35.5); Mean Corpuscular Hemoglobin 30.7 pg (28.0-33.3); Mean Corpuscular Volume 96.5 fL (83.0-100.0); Mean Platelet Volume 9.7 fL (9.4-12.4); Monocytes # 0.5 K/mcL (0.0-1.3); Monocytes % 3.7 %; Platelet Count 229 K/mcL (140-400); Red Blood Count 3.16 M/mcL (3.82-4.97); Red Cell Distribution Width 13.5 % (11.5-14.5); Segmented Neutrophils % 85.7 %; White Blood Count 12.9 K/mcL (4.3-11.1)
[2021-10-26] MEDS: Heparin 25,000UNIT/250ML 1/2NS 25,000 UNIT/250 ML IV.SOLN IVC SCH (01:40)
[2021-10-26 01:46] LABS: BUN/Creatinine Ratio 24 (6-26); Blood Urea Nitrogen 22 mg/dL (8-23); Calcium 7.9 mg/dL (8.6-10.3); Carbon Dioxide 19 mEq/L (23-29); Chloride 109 mEq/L (98-107); Glucose 122 mg/dL (70-105); Magnesium 1.5 mg/dL (1.6-2.6); Osmolality,Calculated 287 (280-300); Potassium 3.8 mEq/L (3.5-5.1); Sodium 136 mEq/L (136-145); eGFR For African Americans > 60 (> 60); eGFR For Non-African Americans 58 (> 60)
[2021-10-26] MEDS: Ipratropium 1 PUFF INHALER IH SCH ×4 (03:53→19:56)
[2021-10-26] MEDS ORDERED: Loratadine 10 MG TABLET PO SCH (09:00)
[2021-10-26] MEDS: Pantoprazole 40 MG VIAL IVP SCH (09:08)
[2021-10-26] MEDS: Lactobacillus 1 EACH CAP.SPRINK GTUBE SCH (09:10)
[2021-10-26] MEDS: Chlorhexidine Rinse 15 ML MOUTHWASH MM SCH ×2 (09:10→19:48)
[2021-10-26] MEDS: Lactobacillus 1 EACH CAP.SPRINK PO SCH (19:48)
[2021-10-27] MEDS: Piperacillin/Tazobactam 3.375 GM in 0.9 % Sodium Chloride Mini Bag 100 ML IVPB SCH ×2 (01:34→08:55)
[2021-10-27] MEDS: Heparin 25,000UNIT/250ML 1/2NS 25,000 UNIT/250 ML IV.SOLN IVC SCH (01:46)
[2021-10-27 02:28] LABS: Basophils % 0.2 %; Hematocrit 29.3 % (35.3-44.9); Immature Granulocytes % 1.5 % (0-4); Lymphocytes # 1.1 K/mcL (0.6-4.6); Lymphocytes % 8.8 %; Mean Corpuscular HGB Conc 30.7 g/dL (31.6-35.5); Mean Corpuscular Hemoglobin 30.5 pg (28.0-33.3); Mean Corpuscular Volume 99.3 fL (83.0-100.0); Mean Platelet Volume 9.9 fL (9.4-12.4); Monocytes # 0.5 K/mcL (0.0-1.3); Monocytes % 4.2 %; Platelet Count 242 K/mcL (140-400); Red Blood Count 2.95 M/mcL (3.82-4.97); Red Cell Distribution Width 13.7 % (11.5-14.5); Segmented Neutrophils % 85.3 %; White Blood Count 12.9 K/mcL (4.3-11.1)
[2021-10-27 02:32] LABS: Heparin anti-factor XA UFH 0.36 IU/mL (0.30-0.70)
[2021-10-27 02:52] LABS: BUN/Creatinine Ratio 21 (6-26); Blood Urea Nitrogen 21 mg/dL (8-23); Calcium 7.9 mg/dL (8.6-10.3); Carbon Dioxide 18 mEq/L (23-29); Chloride 109 mEq/L (98-107); Glucose 103 mg/dL (70-105); Osmolality,Calculated 287 (280-300); Potassium 3.9 mEq/L (3.5-5.1); Sodium 137 mEq/L (136-145); eGFR For African Americans > 60 (> 60); eGFR For Non-African Americans 53 (> 60)
[2021-10-27] MEDS: Ipratropium 1 PUFF INHALER IH SCH ×4 (03:53→20:18)
[2021-10-27] MEDS: Chlorhexidine Rinse 15 ML MOUTHWASH MM SCH ×2 (08:53→20:27)
[2021-10-27] MEDS: Lactobacillus 1 EACH CAP.SPRINK PO SCH ×2 (08:54→20:27)
[2021-10-27] MEDS: Loratadine 10 MG TABLET PO SCH (08:54)
[2021-10-27] MEDS: Pantoprazole 40 MG VIAL IVP SCH (08:55)
[2021-10-27] MEDS ORDERED: Loratadine 10 MG TABLET GTUBE SCH (09:00)
[2021-10-27] MEDS: Apixaban 5 MG TABLET PO SCH ×2 (12:56→20:27)
[2021-10-27] MEDS ORDERED: *HR* Rivaroxaban 10 MG TABLET PO SCH (17:00)
[2021-10-28] MEDS: Ipratropium 1 PUFF INHALER IH SCH ×4 (04:04→19:58)
[2021-10-28 05:52] LABS: Basophils % 0.2 %; Hematocrit 33.5 % (35.3-44.9); Hemoglobin 10.5 g/dL (11.5-15.4); Immature Granulocytes % 1.7 % (0-4); Lymphocytes # 1.1 K/mcL (0.6-4.6); Lymphocytes % 8.5 %; Mean Corpuscular HGB Conc 31.3 g/dL (31.6-35.5); Mean Corpuscular Hemoglobin 30.8 pg (28.0-33.3); Mean Corpuscular Volume 98.2 fL (83.0-100.0); Mean Platelet Volume 9.7 fL (9.4-12.4); Monocytes # 0.7 K/mcL (0.0-1.3); Neutrophils # 11.1 K/mcL (1.6-8.9); Platelet Count 280 K/mcL (140-400); Red Blood Count 3.41 M/mcL (3.82-4.97); Red Cell Distribution Width 14.6 % (11.5-14.5); Segmented Neutrophils % 84.6 %; White Blood Count 13.1 K/mcL (4.3-11.1)
[2021-10-28 06:12] LABS: BUN/Creatinine Ratio 22 (6-26); Blood Urea Nitrogen 22 mg/dL (8-23); Calcium 8.6 mg/dL (8.6-10.3); Carbon Dioxide 22 mEq/L (23-29); Chloride 108 mEq/L (98-107); Glucose 86 mg/dL (70-105); Magnesium 1.9 mg/dL (1.6-2.6); Osmolality,Calculated 293 (280-300); Potassium 3.6 mEq/L (3.5-5.1); Sodium 140 mEq/L (136-145); eGFR For African Americans > 60 (> 60); eGFR For Non-African Americans 54 (> 60)
[2021-10-28] MEDS: Loratadine 10 MG TABLET PO SCH (08:51)
[2021-10-28] MEDS: Apixaban 5 MG TABLET PO SCH ×2 (08:51→20:40)
[2021-10-28] MEDS: Chlorhexidine Rinse 15 ML MOUTHWASH MM SCH ×2 (08:51→20:40)
[2021-10-28] MEDS: Ondansetron 4 MG/2 ML VIAL IVP PRN (08:52)
[2021-10-28] MEDS: Lactobacillus 1 EACH CAP.SPRINK PO SCH ×2 (08:53→20:39)
[2021-10-28] MEDS ORDERED: Pantoprazole 40 MG VIAL IVP SCH (09:00)
[2021-10-29] MEDS: Ipratropium 1 PUFF INHALER IH SCH ×4 (04:02→20:21)
[2021-10-29 05:46] LABS: Basophils % 0.2 %; Hematocrit 27.9 % (35.3-44.9); Immature Granulocytes % 2.3 % (0-4); Lymphocytes # 1.4 K/mcL (0.6-4.6); Lymphocytes % 9.7 %; Mean Corpuscular HGB Conc 30.8 g/dL (31.6-35.5); Mean Corpuscular Hemoglobin 30.7 pg (28.0-33.3); Mean Corpuscular Volume 99.6 fL (83.0-100.0); Mean Platelet Volume 9.7 fL (9.4-12.4); Monocytes # 0.8 K/mcL (0.0-1.3); Monocytes % 5.2 %; Neutrophils # 12.1 K/mcL (1.6-8.9); Platelet Count 251 K/mcL (140-400); Red Cell Distribution Width 14.8 % (11.5-14.5); Segmented Neutrophils % 82.6 %; White Blood Count 14.6 K/mcL (4.3-11.1)
[2021-10-29 05:58] LABS: BUN/Creatinine Ratio 56 (6-26); Blood Urea Nitrogen 42 mg/dL (8-23); Calcium 7.9 mg/dL (8.6-10.3); Carbon Dioxide 21 mEq/L (23-29); Chloride 108 mEq/L (98-107); Glucose 89 mg/dL (70-105); Magnesium 1.8 mg/dL (1.6-2.6); Osmolality,Calculated 292 (280-300); Potassium 3.9 mEq/L (3.5-5.1); Sodium 136 mEq/L (136-145); eGFR For African Americans > 60 (> 60); eGFR For Non-African Americans > 60 (> 60)
[2021-10-29 06:13] LABS: Hemoglobin 8.6 g/dL (11.5-15.4)
[2021-10-29] MEDS: Apixaban 5 MG TABLET PO SCH ×2 (09:48→21:09)
[2021-10-29] MEDS: Loratadine 10 MG TABLET PO SCH (09:48)
[2021-10-29] MEDS: dexAMETHasone 4 MG TABLET PO SCH (09:49)
[2021-10-29] MEDS: Chlorhexidine Rinse 15 ML MOUTHWASH MM SCH ×2 (09:49→21:09)
[2021-10-29] MEDS: Lactobacillus 1 EACH CAP.SPRINK PO SCH ×2 (09:50→21:10)
[2021-10-29] MEDS: Pantoprazole 40 MG VIAL IVP SCH ×2 (09:52→17:30)
[2021-10-30 01:55] LABS: Basophils % 0.2 %; Eosinophils % 0.2 %; Hematocrit 24.9 % (35.3-44.9); Hemoglobin 8.1 g/dL (11.5-15.4); Immature Granulocytes % 2.3 % (0-4); Lymphocytes # 1.5 K/mcL (0.6-4.6); Lymphocytes % 11.2 %; Mean Corpuscular HGB Conc 32.5 g/dL (31.6-35.5); Mean Corpuscular Hemoglobin 32.3 pg (28.0-33.3); Mean Corpuscular Volume 99.2 fL (83.0-100.0); Mean Platelet Volume 9.5 fL (9.4-12.4); Monocytes # 0.6 K/mcL (0.0-1.3); Monocytes % 4.7 %; Neutrophils # 10.6 K/mcL (1.6-8.9); Platelet Count 222 K/mcL (140-400); Red Blood Count 2.51 M/mcL (3.82-4.97); Red Cell Distribution Width 15.5 % (11.5-14.5); Segmented Neutrophils % 81.4 %
[2021-10-30 02:17] LABS: BUN/Creatinine Ratio 39 (6-26); Blood Urea Nitrogen 30 mg/dL (8-23); Calcium 7.5 mg/dL (8.6-10.3); Carbon Dioxide 22 mEq/L (23-29); Chloride 108 mEq/L (98-107); Glucose 81 mg/dL (70-105); Magnesium 1.7 mg/dL (1.6-2.6); Osmolality,Calculated 287 (280-300); Potassium 3.8 mEq/L (3.5-5.1); Sodium 136 mEq/L (136-145); eGFR For African Americans > 60 (> 60); eGFR For Non-African Americans > 60 (> 60)
[2021-10-30] MEDS: Ipratropium 1 PUFF INHALER IH SCH ×4 (03:53→20:33)
[2021-10-30] MEDS: Pantoprazole 40 MG VIAL IVP SCH ×2 (06:14→16:54)
[2021-10-30] MEDS: Apixaban 5 MG TABLET PO SCH ×2 (08:17→21:17)
[2021-10-30] MEDS: Lactobacillus 1 EACH CAP.SPRINK PO SCH ×2 (08:17→21:17)
[2021-10-30] MEDS: Chlorhexidine Rinse 15 ML MOUTHWASH MM SCH ×2 (08:17→21:17)
[2021-10-30] MEDS: dexAMETHasone 4 MG TABLET PO SCH (08:17)
[2021-10-30] MEDS: Loratadine 10 MG TABLET PO SCH (08:18)
[2021-10-31 01:33] LABS: Basophils % 0.2 %; Eosinophils % 0.2 %; Hematocrit 23.1 % (35.3-44.9); Hemoglobin 7.2 g/dL (11.5-15.4); Immature Granulocytes % 2.9 % (0-4); Lymphocytes # 1.2 K/mcL (0.6-4.6); Lymphocytes % 10.2 %; Mean Corpuscular HGB Conc 31.2 g/dL (31.6-35.5); Mean Corpuscular Hemoglobin 31.4 pg (28.0-33.3); Mean Corpuscular Volume 100.9 fL (83.0-100.0); Mean Platelet Volume 9.3 fL (9.4-12.4); Monocytes # 0.6 K/mcL (0.0-1.3); Monocytes % 4.5 %; Platelet Count 220 K/mcL (140-400); Red Blood Count 2.29 M/mcL (3.82-4.97); Red Cell Distribution Width 16.5 % (11.5-14.5); White Blood Count 12.2 K/mcL (4.3-11.1)
[2021-10-31 01:54] LABS: BUN/Creatinine Ratio 26 (6-26); Blood Urea Nitrogen 25 mg/dL (8-23); Calcium 7.7 mg/dL (8.6-10.3); Carbon Dioxide 22 mEq/L (23-29); Chloride 107 mEq/L (98-107); Glucose 95 mg/dL (70-105); Magnesium 1.7 mg/dL (1.6-2.6); Osmolality,Calculated 286 (280-300); Potassium 3.8 mEq/L (3.5-5.1); Sodium 136 mEq/L (136-145); eGFR For African Americans > 60 (> 60); eGFR For Non-African Americans 55 (> 60)
[2021-10-31] MEDS: Ipratropium 1 PUFF INHALER IH SCH ×4 (04:20→20:15)
[2021-10-31] MEDS: Pantoprazole 40 MG VIAL IVP SCH ×2 (05:17→17:30)
[2021-10-31] MEDS: dexAMETHasone 4 MG TABLET PO SCH (08:35)
[2021-10-31] MEDS: Lactobacillus 1 EACH CAP.SPRINK PO SCH ×2 (08:35→19:47)
[2021-10-31] MEDS: Loratadine 10 MG TABLET PO SCH (08:35)
[2021-10-31] MEDS: Apixaban 5 MG TABLET PO SCH ×2 (08:35→19:47)
[2021-10-31] MEDS: Chlorhexidine Rinse 15 ML MOUTHWASH MM SCH ×2 (08:35→19:47)
[2021-10-31] MEDS ORDERED: Iron Sucrose Complex 200 MG in 0.9 % Sodium Chloride 100 ML IVPB ONE ×2 (09:00→15:15)
[2021-10-31] MEDS: Ondansetron 4 MG/2 ML VIAL IVP PRN (19:28)
[2021-10-31] MEDS ORDERED: Prochlorperazine 10 MG/2 ML VIAL IVP ONE (22:30)
[2021-11-01 01:54] LABS: Basophils % 0.1 %; Eosinophils % 0.2 %; Hematocrit 22.1 % (35.3-44.9); Hemoglobin 6.8 g/dL (11.5-15.4); Immature Granulocytes % 2.9 % (0-4); Lymphocytes # 0.9 K/mcL (0.6-4.6); Lymphocytes % 7.3 %; Mean Corpuscular HGB Conc 30.8 g/dL (31.6-35.5); Mean Corpuscular Hemoglobin 31.3 pg (28.0-33.3); Mean Corpuscular Volume 101.8 fL (83.0-100.0); Mean Platelet Volume 9.7 fL (9.4-12.4); Monocytes # 0.5 K/mcL (0.0-1.3); Monocytes % 4.4 %; Neutrophils # 10.5 K/mcL (1.6-8.9); Platelet Count 210 K/mcL (140-400); Red Blood Count 2.17 M/mcL (3.82-4.97); Red Cell Distribution Width 17.7 % (11.5-14.5); Segmented Neutrophils % 85.1 %; White Blood Count 12.3 K/mcL (4.3-11.1)
[2021-11-01 02:11] LABS: BUN/Creatinine Ratio 30 (6-26); Blood Urea Nitrogen 24 mg/dL (8-23); Calcium 7.4 mg/dL (8.6-10.3); Carbon Dioxide 24 mEq/L (23-29); Chloride 108 mEq/L (98-107); Glucose 101 mg/dL (70-105); Magnesium 1.5 mg/dL (1.6-2.6); Osmolality,Calculated 286 (280-300); Potassium 3.8 mEq/L (3.5-5.1); Sodium 136 mEq/L (136-145); eGFR For African Americans > 60 (> 60); eGFR For Non-African Americans > 60 (> 60)
[2021-11-01] MEDS: Ipratropium 1 PUFF INHALER IH SCH ×4 (04:00→20:38)
[2021-11-01] MEDS: Pantoprazole 40 MG VIAL IVP SCH ×2 (05:06→19:06)
[2021-11-01] MEDS: Lactobacillus 1 EACH CAP.SPRINK PO SCH ×2 (09:13→18:59)
[2021-11-01] MEDS: Apixaban 5 MG TABLET PO SCH (09:13)
[2021-11-01] MEDS: Loratadine 10 MG TABLET PO SCH (09:13)
[2021-11-01] MEDS: Ondansetron 4 MG/2 ML VIAL IVP PRN (09:13)
[2021-11-01] MEDS: Chlorhexidine Rinse 15 ML MOUTHWASH MM SCH ×2 (09:13→18:58)
[2021-11-01 11:50] LABS: Hematocrit 24.4 % (35.3-44.9); Hemoglobin 7.2 g/dL (11.5-15.4)
[2021-11-01] MEDS ORDERED: 0.9 % Sodium Chloride 250 ML ONE (12:05)
[2021-11-01] MEDS: *HR* Heparin 5,000 UNIT/ML VIAL SQ SCH (18:58)
[2021-11-01] MEDS: QUEtiapine Fumarate 25 MG TABLET PO SCH (23:42)
[2021-11-02 01:31] LABS: Basophils % 0.3 %; Eosinophils # 0.1 K/mcL (0.0-0.6); Eosinophils % 0.8 %; Hematocrit 27.1 % (35.3-44.9); Immature Granulocytes % 4.3 % (0-4); Lymphocytes # 1.8 K/mcL (0.6-4.6); Lymphocytes % 12.4 %; Mean Corpuscular HGB Conc 32.5 g/dL (31.6-35.5); Mean Corpuscular Hemoglobin 31.9 pg (28.0-33.3); Mean Corpuscular Volume 98.2 fL (83.0-100.0); Mean Platelet Volume 9.9 fL (9.4-12.4); Monocytes # 0.7 K/mcL (0.0-1.3); Monocytes % 4.6 %; Neutrophils # 11.3 K/mcL (1.6-8.9); Nucleated Red Blood Cells 0.1 /100 WBC (0); Platelet Count 222 K/mcL (140-400); Red Blood Count 2.76 M/mcL (3.82-4.97); Red Cell Distribution Width 19.6 % (11.5-14.5); Segmented Neutrophils % 77.6 %; White Blood Count 14.6 K/mcL (4.3-11.1)
[2021-11-02 01:32] LABS: Hemoglobin 8.8 g/dL (11.5-15.4)
[2021-11-02 01:49] LABS: BUN/Creatinine Ratio 36 (6-26); Blood Urea Nitrogen 26 mg/dL (8-23); Calcium 7.6 mg/dL (8.6-10.3); Carbon Dioxide 23 mEq/L (23-29); Chloride 107 mEq/L (98-107); Glucose 89 mg/dL (70-105); Osmolality,Calculated 292 (280-300); Potassium 3.9 mEq/L (3.5-5.1); Sodium 139 mEq/L (136-145); eGFR For African Americans > 60 (> 60); eGFR For Non-African Americans > 60 (> 60)
[2021-11-02] MEDS: Ipratropium 1 PUFF INHALER IH SCH ×4 (03:54→20:23)
[2021-11-02] MEDS: *HR* Heparin 5,000 UNIT/ML VIAL SQ SCH ×2 (05:53→16:53)
[2021-11-02] MEDS: Pantoprazole 40 MG VIAL IVP SCH ×2 (05:53→16:54)
[2021-11-02 06:57] LABS: Bilirubin,Urine Negative (Negative); Blood,Urine Negative (Negative); Clarity,Urine Clear (Clear); Color,Urine Light-Yellow (Yellow); Glucose,Urine (UA) Normal (Normal); Ketones,Urine Negative (Negative); Leukocyte Esterase,Urine Negative (Negative); Nitrite,Urine Negative (Negative); PH,Urine 6.5 pH Units (5.0-8.0); Protein,Urine Trace mg/dL (Neg-Trace); Specific Gravity,Urine 1.016 (1.010-1.025); Urobilinogen,Urine Normal (Normal)
[2021-11-02] MEDS: Chlorhexidine Rinse 15 ML MOUTHWASH MM SCH ×2 (09:10→19:54)
[2021-11-02] MEDS: Lactobacillus 1 EACH CAP.SPRINK PO SCH ×2 (09:10→19:55)
[2021-11-02] MEDS: Loratadine 10 MG TABLET PO SCH (09:10)
[2021-11-02] MEDS ORDERED: *HR* Propofol 200 MG/20 ML VIAL IVP ONE (14:54)
[2021-11-02] MEDS ORDERED: Lidocaine -MPF 2% 5 ML VIAL ONE (14:54)
[2021-11-02] MEDS: QUEtiapine Fumarate 25 MG TABLET PO SCH (19:55)
[2021-11-03 02:19] LABS: Hematocrit 25.3 % (35.3-44.9); Hemoglobin 8.1 g/dL (11.5-15.4); Mean Corpuscular Hemoglobin 32.4 pg (28.0-33.3); Mean Corpuscular Volume 101.2 fL (83.0-100.0); Mean Platelet Volume 9.6 fL (9.4-12.4); Platelet Count 203 K/mcL (140-400); Red Cell Distribution Width 20.2 % (11.5-14.5); White Blood Count 10.6 K/mcL (4.3-11.1)
[2021-11-03] MEDS: Ipratropium 1 PUFF INHALER IH SCH ×4 (04:32→19:47)
[2021-11-03] MEDS: Pantoprazole 40 MG VIAL IVP SCH (05:37)
[2021-11-03] MEDS: *HR* Heparin 5,000 UNIT/ML VIAL SQ SCH ×2 (05:38→16:28)
[2021-11-03] MEDS: Lactobacillus 1 EACH CAP.SPRINK PO SCH ×2 (07:31→20:16)
[2021-11-03] MEDS: Loratadine 10 MG TABLET PO SCH (07:31)
[2021-11-03] MEDS: Chlorhexidine Rinse 15 ML MOUTHWASH MM SCH ×2 (07:31→20:16)
[2021-11-03] MEDS ORDERED: Apixaban 5 MG TABLET PO SCH (09:00)
[2021-11-03] MEDS ORDERED: QUEtiapine Fumarate 25 MG TABLET PO SCH (21:00)
[2021-11-04 01:18] LABS: Hematocrit 27.6 % (35.3-44.9); Hemoglobin 8.6 g/dL (11.5-15.4); Mean Corpuscular HGB Conc 31.2 g/dL (31.6-35.5); Mean Corpuscular Hemoglobin 31.9 pg (28.0-33.3); Mean Corpuscular Volume 102.2 fL (83.0-100.0); Mean Platelet Volume 9.7 fL (9.4-12.4); Platelet Count 214 K/mcL (140-400); Red Cell Distribution Width 20.8 % (11.5-14.5); White Blood Count 9.5 K/mcL (4.3-11.1)
[2021-11-04 01:40] LABS: BUN/Creatinine Ratio 18 (6-26); Blood Urea Nitrogen 17 mg/dL (8-23); Calcium 7.6 mg/dL (8.6-10.3); Carbon Dioxide 24 mEq/L (23-29); Chloride 106 mEq/L (98-107); Glucose 92 mg/dL (70-105); Osmolality,Calculated 285 (280-300); Potassium 3.9 mEq/L (3.5-5.1); Sodium 137 mEq/L (136-145); eGFR For African Americans > 60 (> 60); eGFR For Non-African Americans 58 (> 60)
[2021-11-04] MEDS: Ipratropium 1 PUFF INHALER IH SCH ×2 (03:54→07:27)
[2021-11-04] MEDS: *HR* Heparin 5,000 UNIT/ML VIAL SQ SCH (06:51)
[2021-11-04] MEDS: Loratadine 10 MG TABLET PO SCH (08:56)
[2021-11-04] MEDS: Chlorhexidine Rinse 15 ML MOUTHWASH MM SCH (08:57)
[2021-11-04] MEDS: Lactobacillus 1 EACH CAP.SPRINK PO SCH (08:57)
[2021-11-04 10:28] LABS: Adenovirus Not Detected (Not Detect); Bordetella Pertussis Not Detected (Not Detect); Chlamydophila pneumoniae Not Detected (Not Detect); Coronavirus 229E Not Detected (Not Detect); Coronavirus HKU1 Not Detected (Not Detect); Coronavirus NL63 Not Detected (Not Detect); Coronavirus OC43 Not Detected (Not Detect); Human Metapneumovirus Not Detected (Not Detect); Human Rhinovirus/Enterovirus Not Detected (Not Detect); Influenza A Subtype 2009 H1 Not Detected (Not Detect); Influenza B Not Detected (Not Detect); Mycoplasma pneumoniae Not Detected (Not Detect); Parainfluenza Virus 1 Not Detected (Not Detect); Parainfluenza Virus 2 Not Detected (Not Detect); Parainfluenza Virus 3 Not Detected (Not Detect); Parainfluenza Virus 4 Not Detected (Not Detect); Respiratory Syncytial Virus Not Detected (Not Detect); SARS-CoV-2 Not Detected (Not Detect)
[2021-11-04 10:57] VITALS: PULSE 87; TEMP 99.1; O2SAT 95
[2021-11-04 12:05] VITALS: BP 114/68
== END 2021-11-04 13:00 | DRG 871 ==
LOC: 2ANU → SUATTDRO 10-25 00:24 → OBSVTOIN 10-25 00:24
PROVIDERS: ADMIT Internal Medicine; ATTEND Internal Medicine